=== PATIENT | female | born 1985 | race Caucasian/White ===

== ENCOUNTER 2019-07-17 12:55 | Inpatient (IN) | payer MEDICAID ==
[~2019-07-17] VITALS: Ht 160 cm; Wt 53.1 kg
[2019-07-20] MEDS ORDERED: FERROUS SULFAT325 MG PO (08:35)
[2019-07-20] MEDS ORDERED: PRENAVITE1 TAB PO (08:37)
[2019-07-20 08:38] VITALS: BP 131/73; Ht 160 cm; Wt 53.1 kg
[2019-07-20 08:51] LABS: HEMATOCRIT 34.9 % (36.0-48.0); HEMOGLOBIN 11.5 g/dL (12-16); MCH 29.3 pg (26.0-34.0); RBC 3.92 10x6/uL (4.00-5.40); RDW 16.4 % (11.5-14.5); WBC 6.2 10x3/uL (4.8-10.8)
[2019-07-20 09:29] LABS: APPEARANCE SL CLDY (CLEAR); BILIRUBIN NEGATIVE (NEGATIVE); COLOR YELLOW (YELLOW); GLUCOSE NEGATIVE (NEGATIVE); KETONE NEGATIVE (NEGATIVE); NITRITE NEGATIVE (NEGATIVE); PROTEIN NEGATIVE (NEGATIVE); SPECIFIC GRAVITY 1.015 (1.005-1.020); UROBILINOGEN NORMAL (NORMAL); WHITE CELLS - URINE 0-5 /hpf (0-5)
[2019-07-20 09:34] LABS: BACTERIA MODERATE /hpf (NONE SEEN); EPITHELIAL CELLS 0-5 /hpf (0-5); MUCUS <1+ /lpf (NONE SEEN)
[2019-07-20 15:39] VITALS: BP 134/70
[2019-07-20 19:45] VITALS: BP 137/65
[2019-07-21 04:15] VITALS: BP 143/70
[2019-07-21 05:10] LABS: HEMOGLOBIN 9.2 g/dL (12-16); MCH 29.3 pg (26.0-34.0); MCHC 33.1 g/dL (31.0-37.0); MCV 88.5 fL (80.0-100.0); MEAN PLATELET VOLUME 10.5 fL (7.4-10.4); RBC 3.14 10x6/uL (4.00-5.40)
[2019-07-21 05:13] LABS: HEMATOCRIT 27.8 % (36.0-48.0); WBC 10.1 10x3/uL (4.8-10.8)
[2019-07-21 07:14] LABS: RAPID PLASMA REAGIN Non Reactive (Non Reactive)
[2019-07-21 07:51] VITALS: BP 118/70
[2019-07-21 16:31] VITALS: BP 125/70
[2019-07-21 21:30] VITALS: BP 145/71
[2019-07-22 04:23] VITALS: BP 135/74
--- NOTE | 2019-07-31 07:59 | OP ---
PATIENT NAME: ATIF LEUNG MEDICAL RECORD: [id number] :81 LOCATION:[id number] ADMISSION DATE:07/20/19 SURGEON: BLAISE MARTE MD DATE OF OPERATION: 07/20/2019 DATE OF SERVICE: 07/20/2019 PREOPERATIVE DIAGNOSES: 1. at term. 2. Breech presentation. 3. Advanced maternal age. POSTOPERATIVE DIAGNOSES: 1. at term. 2. Breech presentation. 3. Advanced maternal age. PROCEDURE: Primary low transverse section. SURGEON: Blaise Marte MD CLAIMS REPRESENTATIVE: Simon. ANESTHESIOLOGIST: Dr. Heck. ANESTHESIA: Spinal. FINDINGS: A female in the breech presentation, Apgars were 9 and 9, weight 7 pounds. SPECIMEN REMOVED: Placenta. SPECIMEN DISPOSITION: Discarded. ESTIMATED BLOOD LOSS: 700 cc. URINE OUTPUT: 700 cc. FLUIDS: A 1700 of Lactated Ringer's. COMPLICATIONS: None. DRAINS: Guevara to gravity. INDICATIONS: The patient is a 34-year-old female. The patient is an advanced maternal age female at 38 weeks and 5 gestation. The patient presents with a breech presentation. The patient undergoes section at term for breech and advanced maternal age. DESCRIPTION OF PROCEDURE: After informed consent was assured, the patient was taken to the operating room where anesthetic was obtained without difficulty. The patient is now prepped and draped in the usual sterile fashion. The anesthetic was found to be adequate and a low transverse incision was made in the abdomen and carried down to the underlying layer of the fascia. The fascia was opened in the midline and extended out laterally. Rectus bellies were OPERATIVE REPORT [id number] ATIF LEUNG dissected free superiorly and inferiorly and then in the midline. The bladder blade was now inserted and low transverse hysterotomy was performed. was delivered onto the abdomen with standard breech extraction maneuvers. Cord was doubly clamped and cut and the was passed to the attendant. The placenta was now delivered via Crede maneuver. Uterus was now exteriorized, cleared of all clot and debris. The hysterotomy was closed with a running locked stitch of chromic. Uterus has now returned to the abdomen and the pelvis irrigated. The initial count was correct on the sponges. The rectus bellies were now reapproximated in midline. The fascia was closed with looped PDS. Subcutaneous tissues were irrigated, bleeding vessels cauterized, and the skin was reapproximated with a stitch. Dermabond was applied. Sponge, lap, and needle count was correct times 2 at the close of this procedure. TRANSINT:[id number] Voice Confirmation ID: [id number] DOCUMENT ID: [id number] BLAISE MARTE MD at 0759 CC: [id number] DICTATION DATE: 07/30/19 183 CLEANING ASSOCIATE: 07/30/19 1334 DIS IN 07/22/19 [id number] [place] [address]
== END 2019-07-22 21:25 | disposition home or self-care (01) | DRG 788 ==
LOC: D.LD 07-20 07:46
PROVIDERS: ADMIT Obstetrics & Gynecology; ATTEND Obstetrics & Gynecology
PROC: 10D00Z1 Extraction of Products of Conception, Low, Open Approach (ICD-10-PCS; principal; 2019-07-20 10:30)
DX: O32.1XX0 Maternal care for breech presentation, not applicable or unspecified (principal); Z3A.39 39 weeks gestation of pregnancy; Z37.0 Single live birth; O99.824 Streptococcus B carrier state complicating childbirth